=== PATIENT | male | born 1955 | race Two or more races ===

== ENCOUNTER 2021-08-09 01:22 | Emergency (ER) | payer OTHER ==
[~2021-08-09] VITALS: Ht 185.4 cm; Wt 72.0 kg
[~2021-08-09 01:22] MED LIST: CEFD300C37 PO; CHOL10003 PO; CYAN100028 PO; DOXY100T PO; KETO120S4 TP; LACT-23 PO; METH10TA2 PO; PANT20TA4 PO; PRAZ5CAP2 PO; PREG300C PO; RIVA10TA2 PO; SENN-190 PO; VENL150T PO
--- NOTE | 2021-08-09 01:35 | NUR ---
Patient BIBA c/o CP and blurry vision x4 days. States he had a syncopal episode yesterday. Also c/o chronic low back pain. Per EMS, patient is unhappy with his living situation which is in a fdc. [employer] patient recieved 5mg Morphine; patient currently c/o 9/10 pain.
[2021-08-09] MEDS ORDERED: ONDANSETRON 2MG/ML, 2ML IVPush ONE (02:00)
[2021-08-09] MEDS ORDERED: SODIUM CHLORIDE FLUSH 10ML SYR IVF ONE (02:00)
[2021-08-09] MEDS ORDERED: SODIUM CHLORIDE 0.9% 1,000ML IVBOLUS ONE (02:00)
[2021-08-09 02:04] LABS: BASOPHILS % (AUTO) 1 % (0-1); EOSINOPHILS % (AUTO) 2 % (1-7); LYMPHOCYTES % (AUTO) 27 % (22-44); MEAN CORPUSCULAR HEMOGLOBIN 27.8 pg (27.5-34.5); MEAN CORPUSCULAR HGB CONC 33.2 g/dL (33.2-36.2); MONOCYTES % (AUTO) 14 % (2-9); NEUTROPHILS % (AUTO) 57 % (42-75); PLATELET COUNT 143 x10^3/uL (130-400); RED BLOOD COUNT 2.94 x10^6/uL (4.38-5.82); RED CELL DISTRIBUTION WIDTH 22.2 % (9.4-14.8)
--- NOTE | 2021-08-09 02:04 | NUR ---
pt presents to the ER for generalized pain, pt states a couple days ago his vision got blurry from pain, pt experiencing N/V
[2021-08-09] MEDS: MORPHINE SULFATE 4 MG/ML, 1ML IVPush PRN ×2 (02:11→03:17)
[2021-08-09 02:20] LABS: ALANINE AMINOTRANSFERASE 14 U/L (12-78); ALBUMIN 1.9 g/dL (3.4-5.0); ANION GAP 4 mmol/L (5-15); CALCIUM 7.8 mg/dL (8.5-10.1); CHLORIDE 104 mmol/L (98-107); CREATININE 0.52 mg/dL (0.7-1.3)
[2021-08-09 02:22] LABS: ALKALINE PHOSPHATASE 52 U/L (45-117); BILIRUBIN,TOTAL 0.3 mg/dL (0.2-1.0); TOTAL PROTEIN 6.6 g/dL (6.4-8.2)
--- NOTE | 2021-08-09 02:34 | NUR ---
PT WRITING IN PAIN, THIS RN ADMINISTERED IV MORPHINE AND PT STATED, "YOU KNOW I HAVENT BEEN PAIN FREE SINCE 2007?", PT STATES HE HAS CHRONIC PAIN
[2021-08-09 03:36] LABS: TROPONIN I < 0.015 ng/mL (0.000-0.045)
--- NOTE | 2021-08-09 03:52 | NUR ---
PT STARTED ON 2 LPM NASAL CANULA BECAUSE PT STATES THAT WHILE HE SLEEPS HE IS ON IT, PT CURRENTLY SLEEPING PEACEFULLY IN BED, VSS
--- NOTE | 2021-08-09 04:52 | NUR ---
JESSICA TO PICK PT UP AT 0600
--- NOTE | 2021-08-09 04:53 | NUR ---
PATEINT BEING TRANSFERED BACK HOME TO [address], [id number].
[2021-08-09 05:12] VITALS: BP 112/62
--- NOTE | 2021-08-09 05:13 | NUR ---
PT SENT BACK TO HIS CARE FACILITY, [facility], EMS ARRIVED AND TOOK PT HOME
== END 2021-08-09 05:15 | disposition home or self-care (01) ==
LOC: ED 03:25
DX: D64.9 Anemia, unspecified (principal); M54.6 Pain in thoracic spine; L89.152 Pressure ulcer of sacral region, stage 2; R10.9 Unspecified abdominal pain; Z72.9 Problem related to lifestyle, unspecified; R94.31 Abnormal electrocardiogram [ECG] [EKG]
CPT/HCPCS: 36415; 71045; 80053; 84484; 85025; 93005; 96361; 96374; 96375; 96376; 99285; J2270; J2405; J7030